=== PATIENT | female | born 1990 | race Caucasian/White ===

== ENCOUNTER 2020-12-13 16:33 | Observation (INO) ==
[2020-12-13] MEDS ORDERED: 0.9 % Sodium Chloride 1,000 ML IVC ONE (17:01)
[2020-12-13] MEDS ORDERED: Ondansetron 4 MG/2 ML VIAL IVP ONE (17:19)
[2020-12-13] MEDS ORDERED: Ketorolac 15 MG/ML VIAL IVP ONE (17:19)
[2020-12-13 17:35] LABS: Basophils % 0.3 %; Eosinophils # 0.1 K/mcL (0.0-0.6); Eosinophils % 0.5 %; Hematocrit 46.7 % (35.3-44.9); Hemoglobin 14.8 g/dL (11.5-15.4); Immature Granulocytes % 0.8 % (0-4); Lymphocytes # 1.3 K/mcL (0.6-4.6); Lymphocytes % 9.9 %; Mean Corpuscular HGB Conc 31.7 g/dL (31.6-35.5); Mean Corpuscular Hemoglobin 26.9 pg (28.0-33.3); Mean Corpuscular Volume 84.9 fL (83.0-100.0); Monocytes # 0.9 K/mcL (0.0-1.3); Monocytes % 6.7 %; Neutrophils # 10.5 K/mcL (1.6-8.9); Platelet Count 179 K/mcL (140-400); Red Cell Distribution Width 14.6 % (11.5-14.5); Segmented Neutrophils % 81.8 %; White Blood Count 12.8 K/mcL (4.3-11.1)
[2020-12-13 18:06] LABS: BUN/Creatinine Ratio 13 (6-26); Blood Urea Nitrogen 12 mg/dL (6-20); Calcium 8.9 mg/dL (8.6-10.3); Carbon Dioxide 24 mEq/L (23-29); Chloride 106 mEq/L (98-107); Glucose 98 mg/dL (70-105); Osmolality,Calculated 286 (280-300); Potassium 4.3 mEq/L (3.5-5.1); Sodium 138 mEq/L (136-145); eGFR For African Americans > 60 (> 60); eGFR For Non-African Americans > 60 (> 60)
[2020-12-13] MEDS ORDERED: Piperacillin/Tazobactam 3.375 GM in Water for inj. (sterile) 20 ML IVP ONE (18:14)
[2020-12-13] MEDS ORDERED: cefTRIAXone 1,000 MG in Water for inj. (sterile) 10 ML IVP ONE (18:14)
[2020-12-13 18:30] LABS: Bilirubin,Urine Negative (Negative); Blood,Urine Small (Negative); Clarity,Urine Clear (Clear); Color,Urine Light-Yellow (Yellow); Glucose,Urine (UA) Normal (Normal); Ketones,Urine Negative (Negative); Leukocyte Esterase,Urine Negative (Negative); Mucus,Urine Few per lpf (None-Few); Nitrite,Urine Negative (Negative); PH,Urine 7.5 pH Units (5.0-8.0); Protein,Urine Trace mg/dL (Neg-Trace); RBC,Urine 30-50 per hpf (0-3); Specific Gravity,Urine 1.016 (1.010-1.025); Squamous Epithelial Cell,Urine Few per hpf (None-Few); Urobilinogen,Urine Normal (Normal)
[2020-12-13] MEDS ORDERED: Melatonin 3 MG TABLET PO PRN (18:58)
[2020-12-13] MEDS ORDERED: Naloxone 0.4 MG/ML INJ IVP PRN (18:58)
[2020-12-13] MEDS ORDERED: Ondansetron 4 MG/2 ML VIAL IVP PRN (18:58)
[2020-12-13] MEDS: Acetaminophen 325 MG TABLET PO PRN (20:08)
[2020-12-13] MEDS: Vancomycin 1,750 MG/517.5 ML IV.SOLN IVPB SCH (22:40)
[2020-12-13] MEDS: *HR* HYDROcodone/Acet 5/325 mg TABLET PO PRN (22:40)
[2020-12-13] MEDS ORDERED: 0.9 % Sodium Chloride 500 ML IVC ONE (22:55)
[2020-12-14] MEDS ORDERED: Piperacillin/Tazobactam 3.375 GM in 0.9 % Sodium Chloride Mini Bag 100 ML IVPB SCH
[2020-12-14] MEDS: 0.9 % Sodium Chloride 1,000 ML IVC SCH ×3 (00:06→15:13)
[2020-12-14 02:40] LABS: Basophils % 0.2 %; Eosinophils % 0.2 %; Hematocrit 41.9 % (35.3-44.9); Immature Granulocytes % 0.8 % (0-4); Lymphocytes # 1.1 K/mcL (0.6-4.6); Lymphocytes % 11.1 %; Mean Corpuscular Hemoglobin 26.7 pg (28.0-33.3); Mean Platelet Volume 10.3 fL (9.4-12.4); Monocytes # 0.6 K/mcL (0.0-1.3); Monocytes % 6.1 %; Neutrophils # 7.8 K/mcL (1.6-8.9); Platelet Count 147 K/mcL (140-400); Red Blood Count 4.87 M/mcL (3.82-4.97); Red Cell Distribution Width 14.9 % (11.5-14.5); Segmented Neutrophils % 81.6 %; White Blood Count 9.6 K/mcL (4.3-11.1)
[2020-12-14 02:56] LABS: BUN/Creatinine Ratio 11 (6-26); Blood Urea Nitrogen 10 mg/dL (6-20); Calcium 7.9 mg/dL (8.6-10.3); Carbon Dioxide 21 mEq/L (23-29); Chloride 111 mEq/L (98-107); Glucose 132 mg/dL (70-105); Osmolality,Calculated 285 (280-300); Potassium 4.6 mEq/L (3.5-5.1); Sodium 137 mEq/L (136-145); eGFR For African Americans > 60 (> 60); eGFR For Non-African Americans > 60 (> 60)
[2020-12-14] MEDS: *HR* HYDROcodone/Acet 5/325 mg TABLET PO PRN ×3 (04:33→21:48)
[2020-12-14] MEDS ORDERED: *HR* Heparin 5,000 UNIT/ML VIAL SQ SCH (06:00)
[2020-12-14] MEDS ORDERED: *HR* FentaNYL (PF) 100 MCG/2 ML VIAL IVP PRN (07:28)
[2020-12-14] MEDS ORDERED: Ondansetron 4 MG/2 ML VIAL IVP PRN ×2 (07:28→11:04)
[2020-12-14] MEDS: Vancomycin 1,750 MG/517.5 ML IV.SOLN IVPB SCH (07:40)
[2020-12-14] MEDS: Acetaminophen 325 MG TABLET PO PRN (07:41)
[2020-12-14] MEDS ORDERED: Isovue-300 50ML VIAL ONE (09:44)
[2020-12-14] MEDS ORDERED: Lidocaine -MPF 2% 2 ML VIAL ONE (09:57)
[2020-12-14] MEDS ORDERED: Ondansetron 4 MG/2 ML VIAL ONE (09:57)
[2020-12-14] MEDS ORDERED: *HR* Succinylcholine 200 MG/10 ML VIAL IVP ONE (09:57)
[2020-12-14] MEDS ORDERED: Dexamethasone 4 MG/ML VIAL ONE (09:57)
[2020-12-14] MEDS ORDERED: Lidocaine HCL 4 ML Topical Solution (Laryng-O-Jet Kit Sterile Pak) TP ONE (09:57)
[2020-12-14] MEDS ORDERED: *HR* Midazolam HCl 2 MG/2 ML VIAL ONE (09:58)
[2020-12-14] MEDS ORDERED: *HR* FentaNYL (PF) 100 MCG/2 ML VIAL ONE ×2 (09:58→10:25)
[2020-12-14] MEDS ORDERED: *HR* Propofol 200 MG/20 ML VIAL IVP ONE (09:59)
[2020-12-14] MEDS ORDERED: Ketorolac 30 MG/ML VIAL ONE (10:20)
[2020-12-14] MEDS ORDERED: Naloxone 0.4 MG/ML INJ IVP PRN (11:04)
[2020-12-14] MEDS ORDERED: Melatonin 3 MG TABLET PO PRN (11:04)
[2020-12-14] MEDS ORDERED: Acetaminophen 325 MG TABLET PO PRN (11:04)
[2020-12-14] MEDS: *HR* Heparin 5,000 UNIT/ML VIAL SQ SCH (17:57)
[2020-12-14] MEDS: *HR* HYDROcodone/Acet 10/325 mg TABLET PO PRN (19:30)
[2020-12-14] MEDS ORDERED: Vancomycin 1,750 MG/517.5 ML IV.SOLN IVPB SCH (20:00)
[2020-12-15] MEDS: 0.9 % Sodium Chloride 1,000 ML IVC SCH (00:30)
[2020-12-15] MEDS: *HR* HYDROcodone/Acet 10/325 mg TABLET PO PRN (01:39)
[2020-12-15] MEDS: *HR* HYDROcodone/Acet 5/325 mg TABLET PO PRN (03:48)
[2020-12-15] MEDS: *HR* Heparin 5,000 UNIT/ML VIAL SQ SCH (05:55)
[2020-12-15 06:40] LABS: Basophils % 0.1 %; Hematocrit 40.2 % (35.3-44.9); Hemoglobin 12.6 g/dL (11.5-15.4); Lymphocytes # 1.6 K/mcL (0.6-4.6); Mean Corpuscular HGB Conc 31.3 g/dL (31.6-35.5); Mean Corpuscular Hemoglobin 26.8 pg (28.0-33.3); Mean Corpuscular Volume 85.4 fL (83.0-100.0); Mean Platelet Volume 10.8 fL (9.4-12.4); Monocytes % 7.1 %; Neutrophils # 10.7 K/mcL (1.6-8.9); Platelet Count 153 K/mcL (140-400); Red Blood Count 4.71 M/mcL (3.82-4.97); Red Cell Distribution Width 14.6 % (11.5-14.5); Segmented Neutrophils % 79.8 %; White Blood Count 13.4 K/mcL (4.3-11.1)
[2020-12-15 07:01] LABS: BUN/Creatinine Ratio 15 (6-26); Blood Urea Nitrogen 10 mg/dL (6-20); Calcium 8.2 mg/dL (8.6-10.3); Carbon Dioxide 18 mEq/L (23-29); Chloride 111 mEq/L (98-107); Glucose 150 mg/dL (70-105); Osmolality,Calculated 284 (280-300); Potassium 4.3 mEq/L (3.5-5.1); Sodium 136 mEq/L (136-145); eGFR For African Americans > 60 (> 60); eGFR For Non-African Americans > 60 (> 60)
[2020-12-15 10:16] VITALS: BP 154/99
== END 2020-12-15 12:14 | disposition home or self-care (01) ==
LOC: 3ANU 16:33 → EMEROOARM 16:33 → 3ANU 19:31
PROVIDERS: ADMIT Internal Medicine; ATTEND Internal Medicine